=== PATIENT | female | born 1950 | race Caucasian/White ===

== ENCOUNTER 2016-12-05 07:21 | Day surgery (SDC) | payer MEDICARE, OTHER ==
[2016-12-01 14:36] LABS: HEMATOCRIT 38.3 % (36.0-48.0); HEMOGLOBIN 12.4 g/dL (12.0-16.0)
[2016-12-01 14:51] LABS: BUN (BLOOD UREA NITROGEN) 14 MG/DL (6-23); CALCIUM, SERUM 8.9 MG/DL (8.5-10.4); CHLORIDE, SERUM 104 MMOL/L (96-112); CO2 (CARBON DIOXIDE) 30 MMOL/L (24-34); CREATININE 0.89 MG/DL (0.55-1.02); GFR AFRICAN AMERICAN 78 ML/MIN (>=60); GFR NON AFRICAN AMERICAN 67 ML/MIN (>=60); GLUCOSE, SERUM 78 MG/DL (60-99); POTASSIUM, SERUM 3.9 MMOL/L (3.5-5.3); SODIUM, SERUM 142 MMOL/L (135-148)
--- NOTE | ~2016-12-05 | OP ---
Record Of Operation [facility] [address] [place]. [address] NAME: GEORGE RODRIGUEZ : 46 STATUS : [facility]#: [id number] AGE: 65 ADM/REG DATE : 12/05/16 MR#: [id number] REPORT SERV DATE: 12/05/16 DICTATED BY: Roverto SHULTZ DATE: 12/05/16 REPORT STATUS : Draft TRANSCRIBED BY: DAVIS DATE: 12/05/16 DATE OF PROCEDURE: PREOPERATIVE DIAGNOSIS: Basal cell carcinoma of the right superior cheek near orbital rim. POSTOPERATIVE DIAGNOSES: 1. Basal cell carcinoma of the right superior cheek near orbital rim. 2. Acquired deformity of the right lower eyelid. NAME OF OPERATION: 1. Wide excision of basal cell carcinoma of the right superior cheek with frozen section. 2. Re-excision of the deep margin for permanent section. 3. Reconstruction of the right cheek defect with rotation flap closure. 4. Reconstruction of acquired deformity of the right lower eyelid with eyelid rotation flap closure. FINDINGS: A 1.4 cm tall by 1.3 cm wide resection to obtain free margins, defect of the right superior cheek near infraorbital rim; frozen section showed margins free of tumor, with some question about the deep tissue processing by frozen section (the fat), and therefore, additional deep margin sent for permanent section. INDICATIONS: This 65-year-old female has a biopsy-proven basal cell carcinoma of the right superior cheek near the infraorbital rim. The pros and cons, alternatives, benefits, risks, limitations, and complications of excision and frozen section and reconstruction were discussed at length with the patient. We discussed complications of scarring, infection, suture reaction, distortion of the eyelid and cheek, recurrence of tumor, imponderables. She understands and wishes to proceed. Proper consent obtained. DESCRIPTION OF PROCEDURE: She was taken into the operating room and given general oral endotracheal anesthesia in the supine position. The table was turned. The entire face and right ear and right neck were prepped with Hibiclens and saline followed by isopropyl alcohol. None of these solutions got in her eyes. Sterile drapes were applied. Sterile markings were made around the tumor and then a 3 mm margin of safety around the tumor was marked out in the right superior cheek at the edge of the infraorbital rim. The 12, 3, 6, and 9 o'clock positions were marked. The area was injected with 1% Xylocaine with 1:100,000 epinephrine. The tumor was incised with a 15C blade, bevelling the blade away from the tumor. A suture was placed at the 12 o'clock position before removing the tumor from the tumor bed with a #15 blade. The pathologist was brought into the room for orientation of the specimen and to perform frozen sections. Frozen sections returned showing margins free of tumor, although there was a processing problem with the fat deep. The peripheral margins were all clear. Therefore, it was felt bentley to take an additional deep margin for permanent section. Record Of Operation [facility] [address] [place]. [address] NAME: GEORGE RODRIUGEZ : 46 STATUS : [facility]#: [id number] AGE: 65 ADM/REG DATE : 12/05/16 MR#: [id number] REPORT SERV DATE: 12/05/16 DICTATED BY: Roverto SHULTZ DATE: 12/05/16 REPORT STATUS : Draft TRANSCRIBED BY: DAVIS DATE: 12/05/16 The natural skin creases were marked out parallel to each other across the cheek. A half fusiform ellipse was fashioned inferior and slightly lateral to the resection. This was then incised with a #15 blade and then removed in the subcutaneous plane carrying this upward to where the resection was and taking a layer of fat with this, in the area of the primary resection. The pathology department personnel technician was brought into the room for orientation of the specimen and to perform permanent pathology. The closure was accomplished by developing a laterally based rotation flap measuring 3.5 cm tall and 2 cm wide. This was rotated and secured with 4-0 Vicryl suture. This created an acquired deformity of the right lower eyelid, but great care was taken to perform this rotation flap to avoid ectropion. The eyelid acquired deformity was treated by incision and then flap development over the orbicularis oculi muscle and rotating this flap and excising redundancy carefully and incrementally to avoid ectropion. Hemostasis was obtained with a Beauregard needle tip cautery on a low setting. 5-0 and 6-0 Vicryl closed this flap. The skin edges were well approximated. The wound was cleansed with hydrogen peroxide and dried. Dermabond was placed on all skin edges. Mastisol and paper tape were applied in an antitension fashion. She was awakened, extubated, and taken to the recovery room in good condition having tolerated the procedure well. Estimated blood loss was less than 5 mL. PLAN: Home-going instructions included rechecking in 13 days and leaving the tape on her face for that entire period of time. She is to avoid laughing, talking, smiling, chewing. She is to keep the face still. Prescriptions were written for generic Percocet 7.5/325 APAP #21 p.o. q.4-6 h. p.r.n. pain; cephalexin 500 mg #20 one p.o. b.i.d. until all taken; generic Zofran dispensed 9 one dissolved orally q.6 h. p.r.n. nausea or vomiting. HAYLEE/DAVIS Roverto Shultz M.D. / [id number] CC: Santa Staley M.D.
[~2016-12-05 07:21] MED LIST: BEN25 PO; BETAPACE80 PO; BOTOX100 UNIT IM; CARDCD120 PO; CARDCD180 PO; CYMBALTA60 PO; ELIQUIS 5 MG TAB5 MG PO; EMLA TOP; FLORAJEN PO; FOLIC ACID400 MC1 PO; FOLINIC PLUS PO; ISOSORB DIN30 MG PO; JANTOVEN5 MG PO; L20 PO; LIDOCAINE 3% CREAM TOP; LOM PO; LOVENOX1C SC; MACROBID PO; MACRODANTIN 10100 MG PO; MAG-DELAY PO; MAGNESIUM 500MG OTC PO; MCZ25 PO; NOR10 PO; NORCO1 TA1 PO; NORCO1 TAB PO; PCET PO; POT GLUCONAT550 M1 PO; POTASSIUM 99MG OTC PO; PROAIR HFA INH; ULTRAM50 PO; WELLXL300 PO; ZANAFLEX 4 MG TA4 MG; ZOFRAN4 PO; ZOFRAN8 PO; ZOFRANODT8 PO/SL
[2016-12-05 07:54] LABS: INTERNATIONAL NORMAL RATI 1.2 UNITS (-)
[2016-12-05 07:55] LABS: PROTIME (NOT ORD) 14.9 SEC (12.0-14.5)
== END 2016-12-05 14:10 | disposition home or self-care (01) ==
LOC: SDC 07:21
PROVIDERS: Specialist
PROC: 0HX1XZZ Transfer Face Skin, External Approach (ICD-10-PCS; principal; 2016-12-05 08:45)
DX: C44.319 Basal cell carcinoma of skin of other parts of face (principal); I48.91 Unspecified atrial fibrillation; I44.30 Unspecified atrioventricular block; M19.90 Unspecified osteoarthritis, unspecified site; M25.512 Pain in left shoulder; M25.511 Pain in right shoulder; M25.559 Pain in unspecified hip; K21.9 Gastro-esophageal reflux disease without esophagitis; H93.19 Tinnitus, unspecified ear; H26.9 Unspecified cataract; D64.9 Anemia, unspecified; F07.81 Postconcussional syndrome; F32.9 Major depressive disorder, single episode, unspecified; Z95.0 Presence of cardiac pacemaker; Z96.5 Presence of tooth-root and mandibular implants; Z90.89 Acquired absence of other organs; Z88.7 Allergy status to serum and vaccine; Z88.8 Allergy status to other drugs, medicaments and biological substances; Z91.040 Latex allergy status; Z79.899 Other long term (current) drug therapy; Z87.01 Personal history of pneumonia (recurrent); Z98.1 Arthrodesis status; Z98.890 Other specified postprocedural states; Z91.81 History of falling; Z90.49 Acquired absence of other specified parts of digestive tract; Z92.3 Personal history of irradiation; Z85.3 Personal history of malignant neoplasm of breast; Z92.21 Personal history of antineoplastic chemotherapy; Z90.12 Acquired absence of left breast and nipple
CPT/HCPCS: 80048; 85014; 85018; 85610; 88305; 88331; 88332; 93005; A9270-GY; J0690; J2250; J2405; J2710; J3010